=== PATIENT | male | born 1970 | race Caucasian/White ===

== ENCOUNTER 2016-12-04 11:09 | Emergency (ER) | payer BC ==
[2016-12-04] MEDS ORDERED: Lidocaine 2% VISCOUS* 15 ML UDC PO ONE (14:02)
[2016-12-04] MEDS ORDERED: Al Hydrox/Mg Hydrox/Simet LIQ* 30 ML UDC PO ONE (14:02)
--- NOTE | 2016-12-04 14:09 | UC ---
Abdominal Pain Female HPI - History of Current Complaint Chief Complaint: UCAbdominalPain Stated Complaint: ABDOMINAL COMPLAINT Time Seen by Provider: 12/04/16 13:45 Hx Obtained From: Patient Onset/Duration: Gradual Onset - STARTED VOMITING 5 days ago, lasted 36h or so. After vomiting stopped he has been exp abd cramping in upper mid abd. no blood in vomit. did lose appetite but now can drink water and feels a bit better Severity Initially: Moderate Severity Currently: Mild Location: Epigastric Radiates: No Character: Cramping Aggravating Factor(s): Food Alleviating Factor(s): Nothing Associated Signs and Symptoms: Positive: Decreased Appetite, Nausea, Vomiting Allergies/Adverse Reactions: Allergies Allergy/AdvReac Type Severity Reaction Status Date / Time No Known Allergies Allergy Verified 09/21/14 16:07 Home Medications: Home Medications Bismuth Subsalicylate [Pepto-Bismol Max Strength] 525 mg PO 12/04/16 [History] PMH/Surg Hx/FS Hx/Imm Hx Previously Healthy: Yes - Surgical History Surgical History: Yes Surgery Procedure, Year, and Place: Appendectomy - Family History Known Family History: Positive: None - Social History Occupation: Employed Full-time Lives: With Family Alcohol Use: Occasionally Substance Use Type: Marijuana Substance Use Comment - Amount & Last Used: once every 6 months. Smoking Status (MU): Never Smoked Tobacco Household Exposure Type: Cigarettes - Immunization History Most Recent Tetanus Shot: less then 5 yrs Review of Systems Constitutional: Negative Respiratory: Negative Cardiovascular: Negative Gastrointestinal: Vomiting, Nausea Neurovascular: Negative Neurological: Negative Psychological: Negative All Other Systems Reviewed And Are Negative: Yes Physical Exam Triage Information Reviewed: Yes Appearance: Well-Appearing, No Pain Distress, Well-Nourished Vital Signs: Initial Vital Signs Temp 99.2 F 12/04/16 12:04 Pulse 82 12/04/16 12:04 Resp 18 12/04/16 12:04 BP 138/91 12/04/16 12:04 Pulse Ox 100 12/04/16 12:04 Vital Signs Reviewed: Yes Respiratory Exam: Normal Cardiovascular Exam: Normal Abdomen Description: Positive: Nontender, No Organomegaly, Soft Bowel Sounds: Positive: Present Psychological Exam: Normal Skin Exam: Normal Re-Evaluation - Re-Evaluation First Eval Re-Evaluation Time: 14:30 Change: Improved - pt states he is pain free after med Abd Pain Female Course/Dx - Differential Dx/Diagnosis Differential Diagnosis: Peptic Ulcer Disease, Other - viral illness Provider Diagnoses: gastritis Discharge - Discharge Plan Condition: Improved Disposition: HOME Patient Education Materials: Gastritis (ED) Referrals: Lakhwinder Jimenez MD [Primary Care Provider] - 1 Week (if no better) Additional Instructions: stay on bland diet for 1 week avoid alcohol and spicy foods use prilosec 10mg every day for 5-7 days and also us maalox or [place] LIQUID as directed on bottle for 3-4 days make sure one dose is before bed
[2016-12-04 15:22] VITALS: BP 141/73
== END 2016-12-04 15:05 | disposition home or self-care (01) ==
LOC: UCEAST 11:09
DX: K29.70 Gastritis, unspecified, without bleeding (principal)
CPT/HCPCS: 99212; A9270-GY; G0463